=== PATIENT | male | born 1940 | race Caucasian/White ===

== ENCOUNTER 2020-06-21 19:19 | Inpatient (IN) | payer MEDICARE, BC ==
[~2020-06-21] VITALS: Ht 172.7 cm; Wt 69.6 kg
--- NOTE | ~2020-06-21 | CON ---
[address] [address] CONSULTATION Name: JANET VALADEZ Shell Room: [address] IN .R.#: [id number] Admission: 06/22/20 Attend Phys: Gerard Mariee MD Discharge: Date of : 36 Report #: [id number] THIS REPORT FOR: //name// cc: JOSE Catherine family physician/PCP JOSE - No family physician/PCP ~ THIS REPORT FOR: //name// CC: JOSE physician/PCP Gerard Mariee CARDIOLOGY CONSULTATION HISTORY OF PRESENT ILLNESS: I was asked by Dr. Mariee to see this 80-year-old white male in Cardiology consultation for evaluation and treatment of new onset of tachycardia. This man was admitted on 06/21/2020 after a fall some 2 weeks prior to that. He was found to have a fracture of his left femoral neck. He had been walking around on it for 2 weeks apparently. He had that repaired with a total left hip replacement on the . Last night, he went into a tachycardia, there was narrow complex at a rate of 129 beats per minute and appeared to be either sinus tachycardia or an ectopic atrial tachycardia. He was in what was thought to be an ectopic atrial rhythm when he was admitted with a normal heart rate. It could have been sinus tachycardia. He was tolerating the arrhythmia well without any symptoms. There is no chest pain and no shortness of breath. He was initially mildly hypotensive, but subsequently that resolved. He has now gone into what appears to be atrial fibrillation with a rapid ventricular response. The heart rate for a while was in the 130s and it is now down to the one-teens. He seems to be possibly going in and out of atrial fibrillation on and off. This man unfortunately is demented and cannot give a history. He was on Plavix when he was admitted, but it is unknown why He also has hypertension, hypercholesterolemia, and non-insulin dependent diabetes mellitus. He is tolerating the current atrial fibrillation with a rapid ventricular response well. He again has no symptoms. He denies any chest pain or shortness of breath and his blood pressure is running in the low 100s. This man also is hypothyroid. He also takes Adderall apparently as needed for alertness. PAST MEDICAL HISTORY: Unobtainable other than his medications which include amlodipine 2.5 mg daily, Adderall 10 mg p.r.n. b.i.d. He is on atorvastatin 40 mg daily, citalopram 20 mg daily, Plavix 75 mg daily, glimepiride 4 mg daily, levothyroxine 75 mcg daily, memantine or Namenda 10 mg b.i.d. and metformin 500 mg b.i.d. He is said to have a tonsillectomy in the past. He is apparently supposed to have had a TIA back in October of 2019, perhaps that is why he was on the Plavix. He has a history of dysphagia, prostate cancer and a heart murmur, which I actually doubt here today. FAMILY HISTORY: There [place] [address] CONSULTATION Name: VALADEZJANET J Room: [facility] IN [facility].#: [id number] Admission: 06/22/20 Attend Phys: Gerard Mariee MD Discharge: Date of : 36 Report #: [id number] SOCIAL HISTORY: He does not smoke, drink or use illegal drugs. REVIEW OF SYSTEMS: Negative for some 35 different complaints in 14 different system categories. Please see my review of system form for details and negatives in review of systems. PHYSICAL EXAMINATION: GENERAL: He presents as well-developed, well-nourished elderly white male in no acute distress. VITAL SIGNS: Blood pressure is 105/78, pulse was 128 and irregularly irregular, respirations were 16 and regular. He is clinically afebrile. HEENT: His head was atraumatic. Eyes clear. NECK: Supple. There is no jugular venous distention or hepatojugular reflux. Thyroid is not enlarged. There is no adenopathy. SKIN: Warm and dry. Mucous membranes are moist. LUNGS: Clear to auscultation and percussion. HEART: Revealed normal first and second heart sound. There is no S4, no S3, no murmurs, rubs, thrills, heaves or gallops. PMI is not displaced. The rhythm was irregularly irregular and the rate was approximately 125. ABDOMEN: Soft, flat and nontender. No palpable masses, no organomegaly. EXTREMITIES: Reveal no cyanosis, clubbing or edema. NEUROLOGIC: The patient seemed to mentate normally, although he really could not answer questions very well. He talked normally, moved all extremities normally. His only complaint really was pain in his left hip at the incision site. EKGs are as described above. LABORATORY DATA: His chest x-ray showed mild nonspecific patchy interstitial prominence, which may be chronic with areas of superimposed pneumonitis not excluded. There was no consolidating pulmonary infiltrates, etc. Initial troponin early this morning was 0.09 and the subsequent one was 0.13. BNP was not drawn, but this man did have quite a bit of blood loss with his surgery. His admission hemoglobin was apparently 11, although the actual admission when looks like it was canceled and it fell to 9.1 and was 9.3 this morning. So, he has lost a couple of units. RECOMMENDATION: Given his soft blood pressure, I am not going to use Cardizem for rate control. He has already gotten some metoprolol earlier this morning in an effort to control his then apparent sinus tachycardia, though I suspect that rhythm this morning was really atypical atrial flutter with 2:1 block. I am going to use digoxin to control his heart rate. Given his fall risk, I do not think he is a good candidate for chronic anticoagulation with warfarin or NOAC so I am going to simply put him on aspirin for the time being. I am going to attempt to find out whether there is any history of coronary disease. If there is not, we will start him on some propafenone to see if [place] [address] CONSULTATION Name: VALADEZJANET J Room: [address] IN [facility].#: [id number] Admission: 06/22/20 Attend Phys: Gerard Mariee MD Discharge: Date of : 38 Report #: [id number] sinus rhythm. He denies any history of heart disease to me. He is unsure as to why he takes the Plavix. I suspect, however, history of apparent TIA is less than a year ago. Thank you very much for asking me to see the patient. If there are any questions, please feel free to contact me. By: [phone]. Michael Fernandez MD, RYAN /nt
[2020-06-21 19:36] VITALS: BP 143/69
[2020-06-21] MEDS ORDERED: AMARYL4 MG PO (19:39)
[2020-06-21] MEDS ORDERED: METFORMIN HCL500 M3 PO (19:39)
[2020-06-21] MEDS ORDERED: PLAVIX 75 MG TA75 MG PO (19:39)
[2020-06-21] MEDS ORDERED: NAMENDA 10 MG T10 MG PO (19:39)
[2020-06-21] MEDS ORDERED: NORVASC 2.5 MG2.5 M1 PO (19:39)
[2020-06-21] MEDS ORDERED: CELEXA20 MG PO (19:40)
[2020-06-21] MEDS ORDERED: LIPITOR40 MG PO (19:40)
[2020-06-21 22:29] LABS: ABSOLUTE BASOPHILS 0.1 thou/uL (0.0-0.2); ABSOLUTE EOSINOPHILS 0.7 thou/uL (0.0-0.7); ABSOLUTE LYMPHOCYTES 1.3 thou/uL (0.8-5.3); ABSOLUTE MONOCYTES 0.8 thou/uL (0.0-1.2); ABSOLUTE NEUTROPHILS 9.1 thou/uL (1.6-8.1); BASOPHILS 0.7 %; EOSINOPHILS 6.1 %; HEMATOCRIT 32.8 % (42.0-52.0); LYMPHOCYTES 10.9 %; MCH 30.6 pg (26.0-34.0); MCHC 33.6 g/dL (28.0-37.0); MCV 91.1 fL (80.0-100.0); MONOCYTES 6.8 %; MPV 9.6 fl. (7.2-11.1); NUCLEATED RBCS 0 /100WBC; PLATELET COUNT* 247 thou/uL (150-400); POLYS 75.5 %; RDW-CV 14.2 % (10.5-14.5)
[2020-06-21 22:37] LABS: CALCIUM 8.8 mg/dL (8.5-10.1); CREATININE 1.2 mg/dL (0.6-1.3); POTASSIUM 3.3 mmol/L (3.5-5.1); TOTAL BILIRUBIN 0.5 mg/dL (<0.1-1.0); TOTAL PROTEIN 6.7 g/dL (6.4-8.2)
[2020-06-21 22:38] LABS: INR 1.1; PROTIME 11.2 Seconds (9.20-11.50)
[2020-06-22 00:03] VITALS: BP 169/81
[2020-06-22 00:15] VITALS: BP 185/85
[2020-06-22] MEDS ORDERED: SYNTHROID75 MCG PO (04:05)
[2020-06-22] MEDS ORDERED: ADDERALL 10 MG10 MG PO (04:07)
--- NOTE | 2020-06-22 05:03 | NUR ---
Admission at 0000. He has a L subcap fracture. He fell 2 weeks ago but the pain is steadily gotten worse. L leg is shortened and externally rotated. He has good cap-refill and good pedal pulses. He had pain med at 0059 and we have kept him nothing by mouth.
[2020-06-22 08:00] VITALS: BP 175/84
--- NOTE | 2020-06-22 10:13 | EKG ---
[place] [address] ELECTROCARDIOGRAM REPORT Name: VALADEZJANET Room: [address] ADM IN ..#: [id number] Admission: 06/22/20 Attend Phys: Gerard Mariee, Discharge: Date of : 36 Date of Service: 06/21/202227 Report #: [id number] THIS REPORT FOR: //name// [facility] ED Test Date: 2020-06-21 Test Time: 22:28:20 Pat Name: JANET VALADEZ Department: Room: [facility] Gender: M Gunite Mixer: YUAN : 1940 Requested By: Heidi Ly Order Number: [id number] MD: Serafin Ordoñez Measurements Intervals [place] Rate: 78 P: 243 [place]: 139 QRS: 48 QRSD: 92 T: 34 QT: 450 QTc: 513 Interpretive Statements Ectopic atrial rhythm Atrial premature complex Consider left ventricular hypertrophy Prolonged QT interval No previous ECG available for comparison Electronically Signed On 06-22-2020 10:12:56 CDT by Serafin Ordoñez [email or web address] <ELECTRONICALLY SIGNED> By: Serafin Ordoñez MD, [facility] 06/22/20 1012 27 Serafin Ordoñez MD, [facility] /EPI
--- NOTE | 2020-06-22 11:12 | NUR ---
PT TO SURGERY FOR L HIP REPAIR. AND DAUGHTER AT BEDSIDE.
--- NOTE | 2020-06-22 15:15 | NUR ---
CM COMPLETED INITIAL ASSESSMENT. PT STATED HE LIVES AT HOME W/HIS AND DTR. 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 PT DOESNT RECALL IF HE USED HOME HEALTH IN THE PAST. PT DENIES HX W/SNF. PT HAS WALKER, W/C AND CANE. PT STATES HE ISNT HAS ACTIVE OF LATE. "I'VE BEEN STAYING IN THE HOUSE IN THE LAST FEW MONTHS." CM ATTEMTED TO CONTACT PT VIA TELEPHONE. CM TO CONT TO FOLLOW.
--- NOTE | 2020-06-22 15:28 | NUR ---
PT BACK FROM HIP SURGERY. VSS. BP 166/72, RR16, TEMP 98, O2 SAT 93% 2LNC. ABD PILLOW AND ANNIKA HOSE IN PLACE. AT BEDSIDE.
[2020-06-22 20:18] VITALS: BP 146/75
[2020-06-23 00:05] VITALS: BP 165/72
[2020-06-23 03:18] LABS: HEMATOCRIT 26.6 % (42.0-52.0); HEMOGLOBIN 9.1 gm/dL (14.0-18.0)
[2020-06-23 03:31] VITALS: BP 140/60
[2020-06-23 08:34] VITALS: BP 139/65
--- NOTE | 2020-06-23 16:25 | NUR ---
PT A&Ox4, FORGETFUL. PT HAS FLAT AFFECT. PAIN CONTROLLED WITH NORCO. TOLERATING DIET, DENIED N/V. STOOD AT SIDE OF BED WITH THERAPY. DRESSING C/D/I. TEDs, SCDs, ICE AND ABDUCTOR WEDGE IN PLACE. FALL PRECAUTIONS IN PLACE. CALL LIGHT WITHIN REACH. WILL CONTINUE TO MONITOR.
[2020-06-23 20:00] VITALS: BP 100/58
[2020-06-24] VITALS (24 sets, daily range): BP systolic 104–203; BP diastolic 57–86
[2020-06-24 03:16] LABS: URINE BILIRUBIN NEGATIVE (Negative); URINE BLOOD 3+ (Negative); URINE CLARITY CLEAR; URINE COLOR YELLOW; URINE GLUCOSE-RANDOM NEGATIVE (Negative); URINE KETONES TRACE (Negative); URINE LEUKOCYTES-REFLEX NEGATIVE (Negative); URINE NITRITE-REFLEX NEGATIVE (Negative); URINE PROTEIN 1+ (Negative); URINE UROBILINOGEN 0.2 E.U./dl (0.2-1.0)
[2020-06-24 04:26] LABS: CASTS None Seen /LPF (None Seen); SQUAMOUS 0-3 Few /LPF (0-3)
[2020-06-24 04:27] LABS: BACTERIA-REFLEX 1-9 Few /HPF (None Seen); URINE RBC >20 Many /HPF (0-2); URINE WBC-REFLEX 0-5 Rare /HPF (0-5)
[2020-06-24 04:28] LABS: CRYSTALS None Seen /LPF (None Seen)
[2020-06-24 04:59] LABS: HEMATOCRIT 26.7 % (42.0-52.0); HEMOGLOBIN 9.3 gm/dL (14.0-18.0)
--- NOTE | 2020-06-24 05:05 | NUR ---
PATIENT ARRIVED ON UNIT AT 0330 FROM [facility]. ON ARRIVAL, PATIENT TACHYCARDIC, RATE 130'S, WITH NOTICABLE ST DEPRESSION ON MONITOR. EKG PERFORMED CONFIRMING OBSERVATION. PAGED EKG RESULTS TO DR. ORCHA, PATIENT ASYMPTOMATIC OF ANY OTHER [place] RELATED SYMPTOMS. ORDERS RECEIVED AND CARDIOLOGY CONSULTED STAT. SPOKE WITH DR. BALLESTEROS, ORDERS RECEIVED. 5 MG METOPROLOL GIVEN IV, PATIENT'S BP CORRECTED TO NORMAL LIMITS, HOWEVER HEART RATE REMAINS ELEVATED. TM
[2020-06-24 05:30] LABS: HEMATOCRIT 27.5 % (42.0-52.0); HEMOGLOBIN 9.3 gm/dL (14.0-18.0); MCH 30.4 pg (26.0-34.0); MCHC 33.7 g/dL (28.0-37.0); MCV 90.1 fL (80.0-100.0); MPV 10.3 fl. (7.2-11.1); RBC 3.05 mil/uL (4.50-6.00); RDW-CV 14.2 % (10.5-14.5); WBC 11.8 thou/uL (4.0-11.0)
[2020-06-24 05:33] LABS: CALCIUM 7.9 mg/dL (8.5-10.1); CREATININE 0.8 mg/dL (0.6-1.3); MAGNESIUM 1.7 mg/dL (1.8-2.4); POTASSIUM 3.2 mmol/L (3.5-5.1)
--- NOTE | 2020-06-24 07:25 | NUR ---
PATIENT CARDIAC STATUS STABILIZING. ST DEPRESSION DECREASING ON MONITOR. NO COMPLAINTS OF CHEST PAIN. MEDICATION ADMINISTERED PER CARDIOLOGY ORDERS. PATIENT ATTEMPTED TO VOID BUT COULD NOT, BLADDER SCAN SHOWED >300 ML URINE RESIDUAL. PER DR. ROCHA'S ORDERS, LARSEN CATHETER PLACED. DRAINING URINE APPROPRIATELY.
[2020-06-24 10:01] LABS: ALBUMIN 2.2 g/dL (3.4-5.0); CALCIUM 7.9 mg/dL (8.5-10.1); CREATININE 0.9 mg/dL (0.6-1.3); PHOSPHORUS* 2.5 mg/dL (2.5-4.9); POTASSIUM 3.3 mmol/L (3.5-5.1)
--- NOTE | 2020-06-24 11:56 | NUR ---
ASSUMED CARE OF PT AROUND 0730 THIS AM. REFER TO ASSESSMENT. PT TELE STATUS IN ICU BED 008. CONTINUES TO BE TACHYCARDIC AND DIAPHORETIC. CARDIOLOGY CONSULTED AND PT APPEARS TO BE IN AFLUTTER. DIGOXIN GIVEN TO CONTROL HEART RATE. PT REMAINS IN 90'S TO 120'S AT THIS TIME WITH HEART RATE. POTASSIUM AND MAGNESIUM REPLACED PER PROTOCOL THIS SHIFT. PT ON TOTAL HIP PRECAUTIONS. LARSEN DC'D THIS AM WITH ORDERS TO MONITOR FOR URINE RETENTION AND STRAIGHT CATH IF >800 ML. BLADDER SCAN AT THIS TIME WITH RESULTS 327ML. PT ANTICIPATED TO TRANSFER TO TELE ROOM TODAY. NO OTHER CONCERNS AT THIS TIME. CLWR. WCTM.
--- NOTE | 2020-06-24 14:23 | NUR ---
PATIENT ARRIVED TO 205 PER WC FROM ICU. PATIENT IS ALERT AND ORIENTED X 2. PACED ON TELE MONITOR. ORIENTED TO ROOM AND PROCEDURES. TELE SHOWS SR.
[2020-06-24 15:40] LABS: MAGNESIUM 1.9 mg/dL (1.8-2.4); POTASSIUM 4.4 mmol/L (3.5-5.1)
[2020-06-25] VITALS (7 sets, daily range): BP systolic 107–184; BP diastolic 56–93
--- NOTE | 2020-06-25 05:11 | NUR ---
PT IS ABLE TO COMMUNICATE HIS NEEDS TO STAFF WITH MINOR DIFFICULTY; HE CAN BE A LITTLE CONFUSED AND IMPULSIVE AT TIMES. CURRENT PAIN MEDICATION REGIMEN HAS BEEN ADEQUATE FOR CONTROLLING HIS PAIN UP TO THIS TIME. S/P LEFT HIP SURGERY POD #3. PT HAS ABDUCTOR PILLOW IN PLACE WHILE IN BED; SCDs OR ANNIKA STOCKINGS ON. PT UP TO CHAIR FOR MEALS. PT/OT FOLLOWING, POSSIBLE D/C TO REHAB FACILITY.
[2020-06-25 05:33] LABS: HEMATOCRIT 27.2 % (42.0-52.0); HEMOGLOBIN 9.2 gm/dL (14.0-18.0); MCH 30.9 pg (26.0-34.0); MCHC 33.9 g/dL (28.0-37.0); MPV 10.7 fl. (7.2-11.1); RBC 2.99 mil/uL (4.50-6.00); WBC 13.8 thou/uL (4.0-11.0)
[2020-06-25 05:46] LABS: CALCIUM 8.3 mg/dL (8.5-10.1); CREATININE 1.1 mg/dL (0.6-1.3); POTASSIUM 4.4 mmol/L (3.5-5.1)
[2020-06-25 09:52] LABS: CHOLESTEROL 99 mg/dL (<200); HDL CHOLESTEROL 31 mg/dL (>40); LDL CHOLESTEROL 56 mg/dL (<100); TC:HDL 3.2 Ratio (Not establshd); TRIGLYCERIDE 62 mg/dL (<150); VLDL 12 mg/dL (<40)
[2020-06-25 09:57] LABS: SERUM ASSESSMENT Clear
--- NOTE | 2020-06-25 15:36 | NUR ---
CM spoke with and dtr in room, they are adament that Pt will dc home with HH, opposed to SNF and acute rehab. Therapies to see. CM discussed Pt's need for more care post dc, on Thursday Pt was max assist, continued to remain adament that they do not want Pt to go to skilled or rehab. CM updated Dr. Goal is home with HH. Following.
--- NOTE | 2020-06-25 16:03 | 2DMMODE ---
[place] [address] 2 D/M-MODE ECHOCARDIOGRAM Name: VALADEZJANET J Room: [address] IN [facility]#: [id number] Admission: 06/22/20 Attend Phys: Gerard Mariee, Discharge: Date of : 36 Date of Service: 06/25/20 1603 Report #: [id number] THIS REPORT FOR: cc: FAM - No family physician/PCP FAM - No family physician/PCP Marlon Schaefer MD [facility] ~ APPROVED REPORT Study performed: 06/25/2020 11:53:03 EXAM: Comprehensive 2D, Doppler, and color-flow Echocardiogram Patient Location: In-Patient Room #: [facility] Status: routine BSA: 1.82 HR: 73 bpm BP: 145/74 mmHg Rhythm: NSR Other Information Study Quality: Good Indications Atrial Fibrillation 2D Dimensions IVSd: 13.98 (7-11mm) LVOT Diam: 20.55 (18-24mm) LVDd: 45.29 mm PWd: 9.33 (7-11mm) Ascending Ao: 31.63 (22-36mm) LVDs: 29.44 (25-40mm) Aortic Root: 30.36 mm Volumes Left Atrial Volume (Systole) LA ESV Index: 35.60 mL/m2 Aortic Valve AoV Peak Live.: 2.62 m/s AO Peak Gr.: 27.45 mmHg LVOT Max P.58 mmHg AO Mean Gr.: 18.12 mmHg LVOT Mean P.27 mmHg LVOT Max V: 0.80 m/s AO V2 VTI: 69.27 cm LVOT Mean V: 0.52 m/s TORIN (VTI): 0.79 cm2 LVOT V1 VTI: 16.43 [place] [address] 2 D/M-MODE ECHOCARDIOGRAM Name: JANET VALADEZ Room: [address] IN ..#: [id number] Admission: 06/22/20 Attend Phys: Gerard Mariee, Discharge: Date of : 36 Date of Service: 06/25/20 1603 Report #: [id number] Mitral Valve E/A Ratio: 1.67 MV Decel. Time: 178.19 ms MV E Max Live.: 1.07 m/s MV PHT: 51.67 ms MVA (PHT): 4.26 cm2 TDI E/Lateral E': 11.89 E/Medial E': 13.38 Medial E' Live.: 0.08 m/s Lateral E' Live.: 0.09 m/s Pulmonary Valve PV Peak Live.: 1.16 m/s PV Peak Gr.: 5.39 mmHg Tricuspid Valve RAP Estimate: 5.00 mmHg TR Peak Gr.: 16.07 mmHg RVSP: 21.00 mmHg PA Pressure: 21.00 mmHg Left Ventricle The left ventricle is normal size. There is normal LV segmental wall motion. Mild concentric left ventricular hypertrophy. Left ventricular systolic function is normal. The left ventricular ejection fraction is within the normal range. LVEF is 60-65%. Grade IV - fixed restrictive diastolic dysfunction. Right Ventricle The right ventricle is normal size. The right ventricular systolic function is normal. Atria Left atrium is borderline dilated. The right atrium size is normal. Aortic Valve Mild aortic valve sclerosis. No aortic regurgitation is present. Mild aortic stenosis. Mitral Valve The mitral valve is normal in structure. Mild mitral regurgitation. No evidence of mitral valve stenosis. Tricuspid Valve The tricuspid valve is normal in structure. Mild tricuspid [place] [address] 2 D/M-MODE ECHOCARDIOGRAM Name: VALADEZJANET J Room: [address] [place] [facility]#: [id number] Admission: 06/22/20 Attend Phys: Gerard Mariee, Discharge: Date of : 36 Date of Service: 06/25/20 1603 Report #: [id number] Pulmonic Valve The pulmonary valve is normal in structure. There is no pulmonic valvular regurgitation. Great Vessels The aortic root is normal in size. IVC is normal in size and collapses >50% with inspiration. Pericardium There is no pericardial effusion. <Conclusion> The left ventricle is normal size. Mild concentric left ventricular hypertrophy. Left ventricular systolic function is normal. The left ventricular ejection fraction is within the normal range. LVEF is 60-65%. The right ventricle is normal size. Left atrium is borderline dilated. Mild aortic valve sclerosis. No aortic regurgitation is present. Mild aortic stenosis. The mitral valve is normal in structure. Mild mitral regurgitation. The tricuspid valve is normal in structure. IVC is normal in size and collapses >50% with inspiration. There is no pericardial effusion. There is normal LV segmental wall motion. <ELECTRONICALLY SIGNED> By: Marlon Schaefer MD, FACC 06/25/20 1603 160 160 Marlon Schaefer MD, FACC /INF
--- NOTE | 2020-06-25 19:40 | NUR ---
ALERT AND ORIENTED X 3. P,W &D. IV LEFT UPPER ARM INTACT AND PATENT. INCONT. BOWEL AND BLADDER. HAD LARGE BM TODAY, HELPED WITH DISIMPACTION. LEFT BUTTOCK RED AND VASOLINE OINTMENT PUT ON AREA. AREA IS NOT OPEN JUST RED. HAD THIGH HIGH ANNIKA HOSE NATHALY. LEG. PT INCONT. URINE AND GOT THE RIGHT ONE WET. IT WAS TAKEN OFF AND WASHED AND HANGING UP TO DRY. SCD'S ON NATHALY LOWER LEGS. WEDGE BETWEEN LEGS. LUNGS CLEAR ON RA. REGULAR HEART TONES ON TELE MONTIOR. SR/SA PULSE IN 70'S. NO PEDAL EDEMA NOTED. PEDAL PULSES PRESENT. WILL CONT. TO MONITOR. FAMILY WANTS ANOTHER DAUGHTER PUT ON PT'S RECORD ESCOBAR CAO PHONE [phone].
[2020-06-26] VITALS: BP 117/54
--- NOTE | 2020-06-26 02:39 | NUR ---
PATIENT ALERT AND RESPONSIVE TO NAME AND INSTRUCTION. ANSWERS QUESTIONS IN VERY QUIET ONE WORD RESPONSES. TURNED Q2H WITH ABDUCTION WEDGE MAINTAINED. INCONT LARGE AMOUNTS OF URINE THIS SHIFT. NOTED REDDNESS TO COCCXY AND LEFT BUTTOCKS NOTED PREVIOUS SHIFT. PHOTOS OBTAINED AND PLACED ON CHART. MOISTURE BARRIER WITH TURNS. LOW-GRADE TEMP. DRESSING LEFT HIP CLEAN AND DRY. HS MEDS WHOLE WITH APPLESAUCE. FALL PRECAUTIONS IN PLACE.
[2020-06-26 04:00] VITALS: BP 154/53
[2020-06-26 07:40] VITALS: BP 140/64
[2020-06-26 12:10] VITALS: BP 177/69
--- NOTE | 2020-06-26 14:28 | EKG ---
[place] [address] ELECTROCARDIOGRAM REPORT Name: JANET VALADEZ Room: [address] ADM IN ..#: [id number] Admission: 06/22/20 Attend Phys: Gerard Mariee, Discharge: Date of : 36 Date of Service: 06/24/20 0304 Report #: [id number] THIS REPORT FOR: //name// [facility] Test Date: 2020-06-24 Test Time: 03:04:20 Pat Name: JANET VALADEZ Department: Room: [facility] Gender: M Insurance Job Titles: BX : 1940 Requested By: Sandra Medellin Order Number: [id number] Eugene MD: Marlon Schaefer Measurements Intervals [place] Rate: 129 P: [place]: QRS: 61 QRSD: 84 T: 255 QT: 282 QTc: 414 Interpretive Statements Junctional tachycardia Repolarization abnormality, prob rate related Compared to ECG 06/21/2020 22:28:20 Junctional tachycardia now present Early repolarization now present Ectopic atrial rhythm no longer present Atrial premature complex(es) no longer present Prolonged QT interval no longer present Electronically Signed On 06-26-2020 14:28:38 CDT by Marlon Schaefer [email or web address] <ELECTRONICALLY SIGNED> By: Marlon Schaefer MD, FAC 06/26/20 1428 0304 0304 Marlon Schaefer MD, FAC /EPI
--- NOTE | 2020-06-26 14:29 | EKG ---
[place] [address] ELECTROCARDIOGRAM REPORT Name: JANET VALADEZ Room: [address] ADM [place] .R.#: [id number] Admission: 06/22/20 Attend Phys: Gerard Mariee, Discharge: Date of : 36 Date of Service: 06/24/20 0352 Report #: [id number] THIS REPORT FOR: //name// [facility] Test Date: 2020-06-24 Test Time: 03:52:25 Pat Name: JANET VALADEZ Department: Room: [facility] Gender: M Broadcast Field Supervisor: SARAH : 1940 Requested By: Ольга Fernandez Order Number: [id number] Reading MD: Marlon Schaefer Measurements Intervals [place] Rate: 129 P: 190 [place]: 164 QRS: 65 QRSD: 85 T: 269 QT: 280 QTc: 411 Interpretive Statements Sinus tachycardia Ventricular premature complex Probable LVH with secondary repol abnrm ST depression, probably rate related Compared to ECG 06/24/2020 03:04:20 Ventricular premature complex(es) now present ST (T wave) deviation now present Junctional tachycardia no longer present Electronically Signed On 06-26-2020 14:29:07 CDT by Marlon Schaefer [email or web address] <ELECTRONICALLY SIGNED> By: Marlon Schaefer MD, [facility] 06/26/20 1429 1 1 Marlon Schaefer MD, [facility] /EPI
--- NOTE | 2020-06-26 14:30 | EKG ---
[place] [address] ELECTROCARDIOGRAM REPORT Name: JANET VALADEZ Room: [address] ADM IN ..#: [id number] Admission: 06/22/20 Attend Phys: Gerard Mariee, Discharge: Date of : 36 Date of Service: 06/24/20 0935 Report #: [id number] THIS REPORT FOR: //name// [facility] Test Date: 2020-06-24 Test Time: 09:35:03 Pat Name: JANET VALADEZ Department: Room: [facility] Gender: M Elevator Technician: : 1940 Requested By: Sandra Medellin Order Number: [id number] Eugene MD: Marlon Schaefer Measurements Intervals [place] Rate: 101 P: PA: QRS: 39 QRSD: 98 T: 23 QT: 360 QTc: 467 Interpretive Statements Atrial flutter Probable left ventricular hypertrophy Compared to ECG 06/24/2020 03:04:20 Junctional tachycardia no longer present Early repolarization no longer present Electronically Signed On 06-26-2020 14:29:48 CDT by Marlon Schaefer [email or web address] <ELECTRONICALLY SIGNED> By: Marlon Schaefer MD, FACC 06/26/20 1429 0935 0935 Marlon Schaefer MD, [facility] /EPI
[2020-06-26] MEDS ORDERED: VITAMIN D325 MCG PO (14:38)
[2020-06-26] MEDS ORDERED: ELIQUIS5 MG PO (14:38)
[2020-06-26] MEDS ORDERED: SORINE 80 MG TA80 M1 PO (14:38)
[2020-06-26] MEDS ORDERED: CALCIUM 600 +1 EAC1 PO (14:38)
[2020-06-26] MEDS ORDERED: ASPIR 8181 MG PO (14:38)
[2020-06-26] MEDS ORDERED: COLACE 100 MG100 MG PO (14:38)
[2020-06-26 15:59] VITALS: BP 172/65
--- NOTE | 2020-06-26 16:41 | NUR ---
pt remained alert and oriented. pt was drowsy during day but woke up when verbally spoken to. pt up to chair with therapy. daughter was upset and demanded to speak to doctor and nurse. patient experience etl manager helped to ease the daughter. daighter still upset and wanted to take father and leave ama. physician notified. daughter did not come back or call me with any other information or questions. at bedside. fall risk precautions in place. accu checks completed. hourly rounding completed. will continue to monitor.
[2020-06-26 20:49] VITALS: BP 173/59
[2020-06-27] VITALS: BP 155/51
[2020-06-27 04:00] VITALS: BP 119/65
--- NOTE | 2020-06-27 05:33 | NUR ---
PT IS ABLE TO COMMUNICATE HIS NEEDS TO STAFF WITH MINOR DIFFICULTY; HE FREQUENTLY GIVES JUST ONE WORD ANSWERS AND IS ALSO DROWSY, HE CAN SNSWER QUESTIONS AND DOES FOLLOW COMMANDS. HE HAS DENIED THE NEED FOR PAIN MEDICAITON UP TO THIS TIME. MEDS WITH APPLESAUCE AT THIS TIME. FAMILY HAS INDICATED THEIR DESIRE TO TAKE HIM HOME AND HAVE REFUSED TO ALLOW HIM TO GO TO A REHAB FACILITY AT THIS TIME.
--- NOTE | 2020-06-27 07:22 | OP ---
[address] [address] OPERATIVE REPORT Name: JANET VALADEZ Room: [address] IN .R.#: [id number] Admission: 06/22/20 Attend Phys: Gerard Mariee MD Discharge: Date of : 36 Report #: [id number] THIS REPORT FOR: //name// cc: JOSE Catherine family physician/PCP JOSE - Dorene family physician/PCP ~ THIS REPORT FOR: //name// CC: JOSE physician/PCP Gerard Mariee DATE OF SERVICE: 06/22/2020 PREOPERATIVE DIAGNOSIS: Left subcapital displaced hip fracture. POSTOPERATIVE DIAGNOSIS: Left subcapital displaced hip fracture. SURGERY PERFORMED: Biomet Echo Bi-Metric left hip hemiarthroplasty, size 14 femur, 56 outer shell, 28 inner shell standard neck. SURGEON: Michael Freedman DO FORESTRY FOREMAN: Azeem Neal DO SECOND CAMP BOSS: Dr. Adilene Sweeney. ANESTHESIA: General anesthetic. ANTIBIOTICS: The patient received Ancef 2 grams IV given preoperatively. Did receive TXA IV as well prior to incision. COMPLICATIONS: None. DRAINS: None. SPECIMENS: None. ESTIMATED BLOOD LOSS: 100 mL. GROSS FINDINGS: Prior to surgery, the patient's radiographs correlated with a fall injury and a displaced left femoral neck subcapital fracture. This was verified intraoperatively. Post placement of the hemiarthroplasty hip, he demonstrated a very stable hip through the entire arc of motion with inability to dislocate the hip. SURGERY IN DETAIL: The patient was taken to the operating room and placed on the table, given the benefit of a general anesthetic. [place] [address] OPERATIVE REPORT Name: JANET VALADEZ Shell Room: [address] IN [facility].#: [id number] Admission: 06/22/20 Attend Phys: Gerard Mariee MD Discharge: Date of : 36 Report #: [id number] and rolled onto his right side, left hip facing up, secured on the peg table. The patient was well padded and an axillary roll as well. The patient underwent with Hibiclens scrub, chlorhexidine prep and sterile draping for left hip surgery. Timeout was called and verified by everyone in the room for the left hip. A curvilinear incision was made proximal to the greater trochanter from the lateral approach, extending over the greater trochanter and slightly distally through skin and subcutaneous tissues to the tensor. Tensor was split longitudinally in line with the skin incision. Charnley retractor was applied. The gluteus medius and minimus were reflected off the capsule with electrocautery. He was tearing both of these prior to this surgery anyway. The hip capsule was exposed, cut in an H fashion. Femoral neck was brought up and out into the open site and cut with the cutting guide and a reciprocating saw. Femoral head was now removed, it was trialed to 55. I copiously irrigated, removed redundant fracture fragments within that acetabulum. I did not find any other obvious problems going on there. I did go ahead and copiously irrigate and maintain hemostasis throughout surgery. Surgery continued again at this point in time with serial broaching of the femoral canal and I broached it up to size 14. I trialed that bipolar component, a 56 felt very good. At this point in time, the femoral stem was left in position, I trialed with 56, felt good. All the trial components were removed, we prepared for final implants. The 14 stem was now applied, put into the femoral canal and seated into position. I put the femoral head and the bipolar component with a standard 28 head on that femoral stem and tamped it into position. Hip was reduced, very stable through that reduction and post capsule repair. Capsule was closed with #1 Vicryl in mkgrqw-ru-novzm fashion. I then put the gluteus medius and minimus back on the greater trochanter with #5 Ethibond in iagmuz-mr-kekxo fashion. Attention was closed with same nvyept-dr-smnbb fashion of #1 Vicryl. Subcutaneous tissues were closed with inverted Monocryl with a Stratafix and Dermabond to the skin, Mepilex and dressing. This gentleman was transferred over to recovery in stable condition. I attest I was present for all critical aspects of surgery. Needle, instrument, and sponge counts correct. <ELECTRONICALLY SIGNED> By: Michael Freedman DO 06/27/20 0722 1314 1331Civana Freedman DO /nt
[2020-06-27 08:00] VITALS: BP 159/68
[2020-06-27] MEDS ORDERED: NORVASC5 MG PO (09:52)
[2020-06-27 12:00] VITALS: BP 146/86
--- NOTE | 2020-06-27 13:22 | EKG ---
[place] [address] ELECTROCARDIOGRAM REPORT Name: JANET VALADEZ Room: [address] ADM [place] .R.#: [id number] Admission: 06/22/20 Attend Phys: Gerard Mariee, Discharge: Date of : 36 Date of Service: 06/27/20 0826 Report #: [id number] THIS REPORT FOR: //name// [facility] Test Date: 2020-06-27 Test Time: 08:26:35 Pat Name: JANET VALADEZ Department: Room: [address] Gender: M Cell Tender: : 1940 Requested By: Dallin Villeda Order Number: [id number] Reading MD: Marlon Schaefer Measurements Intervals [place] Rate: 71 P: 248 MI: 126 QRS: 59 QRSD: 89 T: 46 QT: 447 QTc: 486 Interpretive Statements Sinus or ectopic atrial rhythm Minimal ST depression, diffuse leads Borderline prolonged QT interval Compared to ECG 06/24/2020 09:35:03 ST (T wave) deviation now present Atrial flutter no longer present Electronically Signed On 06-27-2020 13:21:54 CDT by Marlon Schaefer [email or web address] <ELECTRONICALLY SIGNED> By: Marlon Schaefer MD, [facility] 06/27/20 1321 5 5 Marlon Schaefer MD, [facility] /EPI
[2020-06-27 16:00] VITALS: BP 96/48
[2020-06-27 20:59] VITALS: BP 165/68
[2020-06-28 00:01] VITALS: BP 140/59
[2020-06-28 04:00] VITALS: BP 165/64
--- NOTE | 2020-06-28 05:20 | NUR ---
PT IS ABLE TO COMMUNICATE HIS NEEDS TO STAFF WITH SOME DIFFICULTY; HE HAS BEEN DROWSY FREQUENTLY AND ANSWERS WITH VERY FEW WORDS OR NOT AT ALL (ANSWERS YES/NO QUESTIONS BEST). HE DOES FOLLOW COMMANDS WELL. HE HAS DENIED THE NEED FOR PAIN MEDICAITON UP TO THIS TIME. LEFT HIP SURGICAL SITE DRESSING INTACT AT THIS TIME.
[2020-06-28 08:00] VITALS: BP 161/72
[2020-06-28] MEDS ORDERED: FLORANEX TABLE1 EACH PO (09:23)
[2020-06-28] MEDS ORDERED: CEFUROXIME250 MG PO (09:23)
[2020-06-28 11:30] VITALS: BP 138/50
--- NOTE | 2020-06-28 14:55 | NUR ---
Pt seen by Kasia Sullivan (commercial driver's license driver), Siena (attending RN), Florencia Shields (CNO), and myself (orthopedic mechanic). Pt answered yes/no questions appropriately, and answered "80" when asked his age. Pt asked by orthopedic mechanic if he wants to go home, and pt nodded. Pt also nodded when asked if he felt safe going home with and duaghter. Pt signed AMA release, which was cosigned by orthopedic mechanic. Plan is to discharge patient AMA to home with and daughter per private vehicle.
--- NOTE | 2020-06-28 15:00 | NUR ---
ASSUMED CARE OF PATIENT AT 0730. PT RESTING IN BED. MECHANICAL MAINTENANCE SUPERVISOR ATTACHED TO PATIENT TRACING SINUS RHYTHM. IV IN LEFT UPPER ARM. SALINE LOCK. PT ON ROOM AIR SAT AT 95%. PT DENIES ANY PAIN OR SHORTNESS OF BREATH UPON INITIAL ASSESSMENT. PT SET UP FOR BREAKFAST IN BED. ABLE TO FEED SELF. PT ALERT AND ORIENTED TO SELF, PLACE, AND SITUATION. PT ABLE TO ANSWER YES AND NO QUESTIONS BY NODDING HEAD. PT HAS FLAT AFFECT. PT INCONTINENT OF URINE THROUGHOUT SHIFT. PT WORKED WITH OT. TOLERATED FAIR. PT UP TO RECLINER FOR LUNCH WITH MAX ASSIST OF 2 AND GAIT BELT. UPON GIVING INSULIN FOR LUNCH. PT ASKED IF IN PAIN. PT NODDED HEAD YES. PT UNABLE TO RATE OR DESCRIBE LOCATION OR INTENSITY OF PAIN. PRN TYLENOL GIVEN PER MAR. UPON REASSESSMENT PT ASKED IF HAVING ANY PAIN. PT NODDED NO. PT COMPRESSION ANNIKA HOSE REPLACED AND PICTURE TAKEN OF BOTTOM, BARRIER CREAM APPLIED. PT AT BEDSIDE AT THIS TIME. AM ASSESSMENT CHARTED. MEDICATION PER MAR. PT REPOSITIONED EVERY 2 HOURS. HOURLY ROUNDING OBSERVED. BED/CHAIR ALARM IN PLACE. CALL LIGHT WITHIN REACH. WILL CONTINUE TO MONITOR.
[2020-06-28 15:37] VITALS: BP 120/52
--- NOTE | 2020-06-28 15:46 | NUR ---
cm spk w/pt this morning in pt's room to discuss d/c planning. cm discussed ARU and HH options to get pt's decision. pt stated "there's no point [in rehab]" pt stated that he wanted to go home. cm was informed by the pt's RN, Siena, that pt's family called and stated they were picking up pt and he was leaving AMA. CM spk w/CM payable manager, Kasia Whaley via telephone, and Kasia instructed this cm to confirmed w/family that pt had a walker, as stated in prev cm assessment note and to help set up HH. cm contacted pt's , domenica, to discuss equip and transportation. cm confirmed that pt had a walker, and (melyssa, dtr and , domenica passed phone back and forth to each other) Melyssa stated she did not want SW to set up w/c accessible transportation w/[employer]. In our initial conversation domenica said [facility] was her first choice; however, when sw called back to inform her [facility] stated it was "against our policy" to accept pts that leave AMA, domenica became irrate and yelled into the link knitting machine operator that "we" [[facility]] were "forcing us to use your phyical therapy." cm repeatedly explained to domenica and melyssa this was not the case, w/ the pt's RN, Siena being present for this conversation. Utlimately, Melyssa stated she did not this cm to arrange HH, as she would go through her primary physician for this service. The CM payable manager, Kasia Whaley has been notified of the situation and that family refused cm services.
--- NOTE | 2020-06-28 16:30 | NUR ---
THIS RN AGREES WITH CHARTING COMPLETED BY MILA HOWARD. AT APPROXIMATELY 1230, PT , DANNI, CALLED STATING "IM COMING TO GET MY AND MY DAUGHTER AND I ARE TAKING HIM HOME". "YOU GUYS ARE NOT DOING ANYTHING THERE FOR HIM". THIS RN EXPLAINED PT IS UP WITH MAX ASSIST OF 2 AND HAS BEEN WORKING WITH THERAPIES. PT STATED MULTIPLE TIMES, "HE WILL NOT GO TO REHAB, THERE IS A VIRUS AROUND, DONT YOU KNOW THAT". THIS RN AND CM SPOKE WITH DAUGHTER AND . CM EXPLAINED OPTIONS WITH HOME HEALTH. PT DAUGHTER AND REFUSED CM SERVICES STATING THEY WILL USE THEIR PRIMARY CARE FOR NEEDS. PT STATED SHE WOULD BE HERE AT 2PM FOR GAME ADVISOR AND COMMUNICATED UNDERSTANDING OF LEAVING AGAINST MEDICAL ADVICE. AT APPROXIMATELY 1430 PT SHOWED UP. THIS RN WENT INTO ROOM TO GO OVER AMA PAPERWORK. WHILE READING RISKS OF LEAVING AGAINST MEDICAL ADVICE, PT CONTINUOUSLY SAID, "ANSWER YES, DEDE. DO YOU HEAR HER TALKING TO YOU, TELL HER YES". THIS RN ASKED PT ABOUT DPOA PAPERWORK AND PT STATED MULTIPLE TIMES "WE FILLED IT OUT IN 1914" THIS RN EXPLAINED PT WAS BORN AFTER 1914 AND PT PERSISTENT"WE COMPLETED IT 1914, ILL GET IT". THIS RN ASKED PT TO PLEASE BRING COPY AND PT STATED MY DAUGHTER WILL BRING IT UP. THIS RN ASKED PT POLITELY IF SHE COULD GO TO WAITING ROOM AND SHE WAS WILLING. THIS RN, CM TINWARE LITHOGRAPH PRESS OPERATOR, CONNIE SCRATCHER AND CNO IN ROOM TO SPEAK WITH PT. PT ABLE TO ANSWER YES/NO QUESTIONS APPROPRIATELY, SLOW TO RESPOND WITH WORDS. PT ASKED IF HE FELT SAFE RETURNING HOME-PT NODDED HEAD YES. WHEN PT ASKED HIS AGE, PT STATED "80". AMA FORM SIGNED AND WITNESSED. IV AND VIDEOGAME TESTER REMOVED. PT DRESSED IN PERSONAL CLOTHING AND TRANSFERRED TO WHEELCHAIR WITH 2 ASSIST. PT LEFT ROOM VIA SCOOTER AND CAME BACK WITH COPIES OF DPOA PAPERWORK. PAPERWORK COPIED AND PLACED IN CHART. PT DISCHARGED AMA VIA WHEELCHAIR WITH BELONGINGS PER NURSING STAFF TO DAUGHTERS PRIVATE VEHICLE.
--- NOTE | 2020-06-29 09:58 | NUR ---
MAURICIO ROUSSEAU SPOKE TO [facility] AFTER PATIENT WAS DISCHARGED AMA ON 06/28/[address] [facility] RECOMMENDED THAT SHE CALL POLICE TO DO A WELLNESS CHECK. LOCAL AUTHORITIES CONTACTED. BAKARI FROM [facility] ([phone]) CALLED TO SPEAK TO THIS MORNING (06/29/20). BAKARI STATES THAT CURRENT PHONE NUMBER SHE HAS FOR THE PATIENT IS DISCONNECTED AND SHE WANTS TO KNOW IF WE HAVE ANY OTHER PHONE NUMBERS THAT SHE CAN TRY. PHOTOGRAPHIC SPOTTER PROVDIED BAKARI WITH THE 'S WORK NUMBER (LISTED IN DEMOGRAPHICS: [phone]). ALSO PROVIDED DTR ESCOBRA CAO'S PHONE NUMBER (FOUND IN NURSING NOTES: [phone]). BAKARI STATED THAT IF SHE IS STILL UNSUCCESSFUL WITH MAKING CONTACT WITH THE PATIENT AND FAMILY SHE WILL DISPATCH HER TEAM TO VISIT THE HOME. ADVISED BAKARI TO CALL BACK IF SHE HAS ANY OTHER QUESTIONS OR CONCERNS.
== END 2020-06-28 16:30 | disposition left against medical advice (07) | DRG 469 ==
LOC: M.ERS 19:19 → M.TBA-ER 21:28 → M.ORTHSURG 23:57 → M.ICU 06-24 03:20 → M.2W 06-24 13:44
PROVIDERS: Emergency Medicine; Internal Medicine; Orthopaedic Surgery; ADMIT Internal Medicine; ATTEND Internal Medicine
PROC: 0SRS01Z Replacement of Left Hip Joint, Femoral Surface with Metal Synthetic Substitute, Open Approach (ICD-10-PCS; principal; 2020-06-22)
DX: M80.852A Other osteoporosis with current pathological fracture, left femur, initial encounter for fracture (principal); J18.9 Pneumonia, unspecified organism; I21.A1 Myocardial infarction type 2; D68.69 Other thrombophilia; I48.92 Unspecified atrial flutter; J98.11 Atelectasis; Z20.828 Contact with and (suspected) exposure to other viral communicable diseases; F03.90 Unspecified dementia, unspecified severity, without behavioral disturbance, psychotic disturbance, mood disturbance, and anxiety; E11.9 Type 2 diabetes mellitus without complications; I10 Essential (primary) hypertension; E87.6 Hypokalemia; I48.91 Unspecified atrial fibrillation; I35.0 Nonrheumatic aortic (valve) stenosis; D50.0 Iron deficiency anemia secondary to blood loss (chronic); Z53.29 Procedure and treatment not carried out because of patient's decision for other reasons; Z86.73 Personal history of transient ischemic attack (TIA), and cerebral infarction without residual deficits; Z88.6 Allergy status to analgesic agent; Z85.46 Personal history of malignant neoplasm of prostate; Z82.49 Family history of ischemic heart disease and other diseases of the circulatory system; Z79.899 Other long term (current) drug therapy